=== PATIENT | male | born 1985 | race Caucasian/White ===

== ENCOUNTER 2016-09-09 10:49 | Outpatient (CLI) | payer OTHER ==
[2016-07-29 11:41] VITALS: O2SAT 96
== END 2016-09-09 10:50 | disposition home or self-care (01) | DRG 561 ==
LOC: CONVCARE 10:49
PROVIDERS: ATTEND Orthopaedic Surgery
DX: S62.511D Displaced fracture of proximal phalanx of right thumb, subsequent encounter for fracture with routine healing (principal)
CPT/HCPCS: 73140

== ENCOUNTER 2016-10-08 13:20 | Outpatient (CLI) | payer OTHER ==
[2016-07-29 11:41] VITALS: O2SAT 96
== END 2016-10-08 13:21 | disposition home or self-care (01) | DRG 561 ==
LOC: CONVCARE 13:20
PROVIDERS: ATTEND Orthopaedic Surgery
DX: S62.511D Displaced fracture of proximal phalanx of right thumb, subsequent encounter for fracture with routine healing (principal)
CPT/HCPCS: 73140